=== PATIENT | female | born 2000 | race Caucasian/White ===

== ENCOUNTER 2024-08-04 12:48 | Emergency (ER) | payer OTHER, SELFPAY ==
--- NOTE | 2024-08-04 12:57 | ED_ITS ---
HPI - Skin/Abscess/Foreign Bdy General Chief complaint: Skin/Abscess/Foreign Body Stated complaint: RASH/VISION CHANGES Time Seen by Provider: 08/04/24 13:14 Source: patient and RN notes reviewed Mode of arrival: ambulatory Limitations: no limitations History of Present Illness HPI narrative: 24-year-old female presents with concern for an episode of blurry vision and an episode of discoloration on her chest. She reports this week when she leaves her office to go to her car for lunch she notices a flushed color on her chest and cheeks. She reports the skin is not raised or itchy. In a separate complaint she reports today she was working on her computer and her vision became blurred for about 20 minutes and then she had a headache. She reports that was not the worse headache of her life. She did not take any medication for her headache. She denies any difficulty speaking or swallowing. She denies weakness in any extremity. She does not were glasses or contact lenses. complaint: rash Related Data Home Medications ?Medication ?Instructions ?Recorded ?Confirmed ?Last Taken ?Type control implant 08/04/24 Unknown History Allergies Allergy/AdvReac Type Severity Reaction Status Date / Time No Known Allergies Allergy Unverified 08/04/24 12:57 Review of Systems Review of Systems: CONSTITUTIONAL: Denies malaise, chills, sweats, or fever. EYES: Denies redness, or discharge. Reports a brief episode of blurred vision today ENT: Denies rhinorrhea, congestion, swollen lips, swollen tongue CARDIOVASCULAR: Denies chest pain, palpitations, or edema. RESPIRATORY: Denies cough or dyspnea. GASTROINTESTINAL: Denies abdominal pain, nausea, vomiting SKIN: Reports periodic rash on her chest and cheeks MUSCULOSKELETAL: Denies joint pain or myalgia. NEUROLOGIC: Reports headache. 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 There is no relevant family history pertinent to the presenting complaint Exam Narrative: GENERAL: Well-appearing, well-nourished, and in no acute distress. HEAD: Normocephalic, atraumatic. EYES: PERRLA, conjunctivae clear, and EOMI. ENT: Mucous membranes moist. Oropharynx without edema, erythema or lesions. NECK: Supple. No lymphadenopathy CHEST: Clear to auscultation. No respiratory distress. HEART: Regular rate and rhythm. SKIN: Warm, dry, pink no rash noted NEURO: Alert and oriented x3. PSYCH: Normal mood and affect Course Course Emergency Course: Patient counseled to take notes of her symptoms and follow up with her primary care doctor if they persist. Exam is currently normal. Patient is aware of diagnosis, understands and agrees to treatment plan. Anticipatory guidance given. Patient agrees to follow-up as directed and is aware of reasons to seek care at the emergency department. Portions of this record may have been created with voice recognition software Level of Care: Express Care Visit Vital Signs Vital signs: Reviewed. MDM - Skin/Abscess/Foreign Bdy MDM Narrative Medical decision making narrative: Does not appear at this time to be erythema multiforme, bullous, SJS, TEN; no evidence at this time to suggest RMSF, endocarditis or Lyme disease; patient looks well, nontoxic and is tolerating oral intake; no neurologic signs or symptoms; no headache, photophobia or neck pain; afebrile; appropriate for initial outpatient treatment; discussed the importance of follow-up, patient agrees; question, viral exanthema, contact dermatitis, allergic dermatitis, eczema, urticaria, [ xx ]. No soft palate or uvula edema, no tongue, lip edema or other mucosal involvement, no respiratory compromise, no stridor, no wheezing, no wheezing, no history of syncope, no hypotension, no nausea, vomiting, or diarrhea. Instructed patient to go to nearest ER immediately for any worsening symptoms including but not limited to: fever, spreading rash, pain, sore throat, headache, dizziness, chest pain, trouble breathing, or any symptoms concerning to the patient. Critical Care Time Critical Care Time Critical Care Time: No Discharge Plan Discharge Clinical Impression: Blurred vision Patient Disposition: Home Condition: Stable Instructions: Blurred Vision (ED) Additional Instructions: 1) Please follow-up with your primary care doctor if her symptoms persist. 2) If you have any worsening of symptoms or any other urgent concerns please go to the ER. 3) Please take any antihistamine such as Zyrtec as needed if you develop a rash. And continue taking your home medications as usual. 4) Please read and follow information included in discharge instructions. Patient Language: Bulgarian Prescriptions: No Action diclofenac sodium 3 % gel 1 applic topical BID Qty: 100 1RF Follow-up/Referrals: Chandan,Makenna Pederson APRN [Primary Care Provider] - Stand Alone Forms: Work/School Release IP Time of Disposition: 13:30
[2024-08-04 13:00] VITALS: BP 138/77; PULSE 81; RESP 18; TEMP 36.7; O2SAT 100
== END 2024-08-04 13:36 | disposition home or self-care (01) ==
PROVIDERS: Emergency Provider Nurse Practitioner; PCP Nurse Practitioner Family
DX: H53.8 Other visual disturbances (principal); F17.290 Nicotine dependence, other tobacco product, uncomplicated
CPT/HCPCS: 99211; G0463